=== PATIENT | female | born 1945 | race Caucasian/White ===

== ENCOUNTER 2019-09-07 10:20 | Emergency (ER) | payer MEDICARE, OTHER ==
[~2019-09-07] VITALS: Ht 165.1 cm; Wt 74.8 kg
[2019-09-07] MEDS ORDERED: APIX5TAB (10:37)
[2019-09-07] MEDS ORDERED: FURO20TA4 (10:37)
[2019-09-07] MEDS ORDERED: METO100T12 (10:37)
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
--- NOTE | 2019-09-07 11:30 | Diagnostic Imaging Report ---
PROCEDURE: CT head without contrast. TECHNIQUE: Multiple contiguous axial images were obtained through the brain without the use of intravenous contrast. Auto Exposure Controls were utilized during the CT exam to meet ALARA standards for radiation dose reduction. INDICATION: Headaches. Patient on blood thinners. COMPARISON: None. FINDINGS: BRAIN: No parenchymal hemorrhage, midline shift, or mass effect. The vides/white matter differentiation is adequately preserved without evidence of acute territorial infarct. Mild periventricular and subcortical low-density white matter changes are nonspecific, most commonly representing small vessel ischemic change. Mild prominence of the ventricles and sulci is consistent with cortical and cerebellar parenchymal volume loss, commensurate with age. EXTRA-AXIAL SPACES: No subdural or epidural collections. ORBITS AND PARANASAL SINUSES: The visualized orbits and globes are intact. The visualized paranasal sinuses and mastoid air cells are clear. CALVARIUM AND SOFT TISSUES: The calvarium is intact. No fractures or suspicious bony lesions. The extracranial soft tissues are unremarkable. IMPRESSION: No acute intracranial pathology. Chronic changes are detailed above. Dictated by: Dictated on workstation # [id number]
[2019-09-07 11:38] VITALS: BP 137/80
== END 2019-09-07 11:38 | disposition home or self-care (01) ==
LOC: EDUNIT# 10:20 → ER 10:21
DX: R51 Headache (principal); Z79.01 Long term (current) use of anticoagulants
CPT/HCPCS: 70450

== ENCOUNTER 2019-09-13 12:13 | Emergency (ER) | payer MEDICARE, OTHER ==
[~2019-09-13] VITALS: Ht 165.1 cm; Wt 77.2 kg
[~2019-09-13 12:13] MED LIST: APIX5TAB; FURO20TA4; METO100T12
--- OUTSIDE RECORDS SUMMARY | 2019-09-13 12:17 | XMS REPORT | Continuity of Care Document ---
Author Organization Unknown Address Unknown Phone Unavailable Allergies Active Description Code Type Severity Reaction Onset Reported/Identified Relationship to Patient Clinical Status Yes No Known Drug Allergies [id number] Drug Allergy Unknown N/A 09/07/2019 Medications There is no data. Problems Date Dx Coded Attending Type Code Diagnosis Diagnosed By 09/09/2019 SHAQUILLE PARK APRN Ot R51 HEADACHE 09/09/2019 SHAQUILLE PARK APRN Ot Z79.01 SKILLED NURSING (CURRENT) USE OF ANTICOAGULANT Procedures There is no data. Results There is no data. Encounters ACCT No. Visit Date/Time Discharge Status Pt. Type Provider Facility Loc./Unit Complaint [id number] 09/07/2019 10:21:00 020 11:38:00 DIS Outpatient SHAQUILLE PARK APRN [facility] ER HEADACHE
--- NOTE | 2019-09-13 12:28 | ED General ---
General Stated Complaint: SHAKINESS, POSS REACTION TO ZOLOFT Source of Information: Patient History of Present Illness Date Seen by Provider: September 13, 2019 Time Seen by Provider: 12:23 Initial Comments 74-year-old female presents with shakiness. Patient reports that she started Zoloft a couple days ago. She feels like it happened after she takes Zoloft. Patient does not have any other symptoms. Patient does admit to being under a lot of stress but does not think that this shakiness is from the stress. Patient denies any nausea vomiting vision changes shortness of breath or any other systemic complaints. Allergies and Home Medications Allergies Coded Allergies: No Known Drug Allergies (Unverified , 09/07/19) Patient Home Medication List Home Medication List Reviewed: Yes Review of Systems Review of Systems Constitutional: see HPI; No chills, No fever EENTM: no symptoms reported Respiratory: no symptoms reported Cardiovascular: no symptoms reported Gastrointestinal: no symptoms reported Genitourinary: no symptoms reported Skin: no symptoms reported Psychiatric/Neurological: See HPI, Anxiety Past Wbvobvr-Qwazkb-Bwqdql Hx Past Med/Social Hx: Reviewed Nursing Past Med/Soc Hx Patient Social History Recent Foreign Travel: No Contact w/Someone Who Travel: No Recent Hopitalizations: No Immunizations Up To Date Tetanus Booster (TDap): Unknown Seasonal Allergies Seasonal Allergies: Yes Past Medical History Surgeries: Yes Appendectomy, Tonsillectomy Respiratory: No Cardiac: Yes Neurological: No Genitourinary: No Gastrointestinal: No Musculoskeletal: No Endocrine: No HEENT: No Cancer: No Psychosocial: No Integumentary: No Blood Disorders: No Physical Exam Vital Signs Vital Signs - First Documented 09/13/19 12:15 Temp 37.0 Pulse 103 Resp 18 B/P (MAP) 194/103 (133) O2 Delivery Room Air Capillary Refill : Height, Weight, BMI Height: '" Weight: lbs. oz. kg; 27.00 BMI Method: General Appearance: No Apparent Distress, Other (mild tremors) HEENT: PERRL/EOMI Neck: Full Range of Motion, Non Tender Respiratory: Chest Non Tender, Lungs Clear Cardiovascular: Regular Rate, Rhythm, No Edema Gastrointestinal: Non Tender, Soft Back: Normal Inspection Extremity: Normal Capillary Refill Neurologic/Psychiatric: Alert, Oriented x3, Other (mild tremors, questionable mild dystonic reaction) Progress/Results/Core Measures Suspected Sepsis SIRS Temperature: Pulse: Respiratory Rate: Blood Pressure / Mean: Results/Orders My Orders Orders - STEFFANY LOCKWOOD DO Diphenhydramine Injection (Benadryl Inje (09/13/19 12:30) Medications Given in ED Current Medications Medications Dose Ordered Sig/Crsitian Route Start Time Stop Time Status Last Admin Dose Admin Diphenhydramine HCl 50 mg ONCE ONCE IM 09/13/19 12:30 09/13/19 12:32 DC 09/13/19 12:38 50 MG Vital Signs/I&O 09/13/19 12:15 Temp 37.0 Pulse 103 Resp 18 B/P (MAP) 194/103 (133) O2 Delivery Room Air Capillary Refill : Progress Note : Time: 13:06 Progress Note Patient doing signally better following that medication. Discussed with patient that she should follow-up with her primary care provider to determine she wants to continue her Zoloft. Patient will be discharged home in stable condition. Departure Impression Primary Impression: Medication reaction Qualified Codes: T50.905A - Adverse effect of unspecified drugs, medicaments and biological substances, initial encounter Disposition: 01 HOME, SELF-CARE Condition: Stable Departure-Patient Inst. Referrals: NO,LOCAL PHYSICIAN (PCP/Family) Primary Care Physician Patient Instructions: Adverse Drug Reactions, Adult (DC), Dystonia Add. Discharge Instructions: Follow-up with your primary care provider determine if you want to continue her Zoloft switch to another medication. If symptoms return you can try a Benadryl 25 mg [id number]. STEFFANY LOCKWOOD DO September 13, 2019 12:28
[2019-09-13] MEDS ORDERED: diphenhydrAMINE 50 MG/ML INJ (BENADRYL) IM ONE (12:30)
[2019-09-13 13:09] VITALS: BP 179/96
== END 2019-09-13 13:13 | disposition home or self-care (01) ==
LOC: EDUNIT# 12:13 → ER 12:14
DX: R25.1 Tremor, unspecified (principal); T43.225A Adverse effect of selective serotonin reuptake inhibitors, initial encounter
CPT/HCPCS: 99284

== ENCOUNTER 2020-05-12 13:43 | Emergency (ER) | payer MEDICARE, OTHER ==
[~2020-05-12] VITALS: Ht 162.5 cm; Wt 86.9 kg
--- NOTE | 2020-05-12 14:38 | ED EENT ---
History of Present Illness General Chief Complaint: Nasal Problems Stated Complaint: BAD NOSE BLEED, LUMP ON NECK Nursing Triage Note: AMB TO ROOM REPORTS THAT BETWEEN 8A AND 9A BENT OVER TO FEED HER CATS AND ONSET OF NOSEBLEED FROM R NARE. IT STOPPED NO BLEEDNG ON ADMIT. PATIENT GIVES POOR PMH Source: patient Exam Limitations: no limitations History of Present Illness Date Seen by Provider: May 12, 2020 Time Seen by Provider: 14:01 Initial Comments Patient presents ER by private conveyance by family with chief complaint she bent over this morning while feeding her cats and developed a bloody nose. It has since stopped but she is never had bloody noses before. She is having no pain or trauma. She denies falling or syncope. She denies knowing what her medications are but records indicate she did use Eliquis at one point the least as recent as January 2020. Patient is a poor historian. She says she used to follow with a doctor in [place], [place] but recently moved here and has not established care with a doctor yet. She does not know the names of her medicines. She did not use any nasal medications recently. She denies putting anything in her nose. Allergies and Home Medications Allergies Coded Allergies: No Known Drug Allergies (Unverified , 09/07/19) Patient Home Medication List Home Medication List Reviewed: Yes Review of Systems Review of Systems Constitutional: No chills, No diaphoresis Eyes: Denies Blindness, Denies Drainage Ears: Denies Dizziness, Denies Pain Nose: see HPI; denies clots; epistaxis Mouth: denies clots, denies clear discharge Throat: denies pain, denies swelling Respiratory: No cough, No phlegm Cardiovascular: No chest pain, No edema All Other Systems Reviewed Negative Unless Noted: Yes Past Huahrxc-Wzlcsq-Wxolha Hx Patient Social History Alcohol Use: Denies Use Recreational Drug Use: No Smoking Status: Never a Smoker Recent Foreign Travel: No Contact w/Someone Who Travel: No Recent Infectious Disease Expo: No Recent Hopitalizations: No Immunizations Up To Date Tetanus Booster (TDap): Unknown Seasonal Allergies Seasonal Allergies: Yes Past Medical History Surgeries: Yes Appendectomy, Tonsillectomy Respiratory: No Cardiac: Yes Neurological: No Genitourinary: No Gastrointestinal: No Musculoskeletal: No Endocrine: No HEENT: No Cancer: No Psychosocial: No Integumentary: No Blood Disorders: No Physical Exam Vital Signs Vital Signs - First Documented 05/12/20 14:23 Temp 36.4 Pulse 95 Resp 18 B/P (MAP) 202/126 (151) Pulse Ox 97 O2 Delivery Room Air Height, Weight, BMI Height: '" Weight: lbs. oz. kg; 32.00 BMI Method: General Appearance: WD/WN, no apparent distress Eyes: bilateral eye normal inspection, bilateral eye PERRL, bilateral eye EOMI Ears: bilateral ear auricle normal, bilateral ear canal normal, bilateral ear TM normal Nose: No active bleeding, No discharge; dried blood (Small clot anterior left nare hemostatic) Mouth/Throat: No pharynx normal (Mucosa mildly dry but without exudate tenderness swelling erythema or injection) Neck: non-tender, full range of motion, supple, normal inspection Cardiovascular: normal peripheral pulses, regular rate, rhythm Respiratory: lungs clear, normal breath sounds, no respiratory distress, no accessory muscle use Gastrointestinal: normal bowel sounds, non tender, soft Neurologic/Psychiatric: alert, normal mood/affect, oriented x 3 Skin: normal color, warm/dry Progress/Results/Core Measures Results/Orders My Orders Orders - DIDI CISNEROS Oxymetazoline 0.05% Nasal [place] (Afrin 0. (05/12/20 21:00) Vital Signs/I&O 05/12/20 05/12/20 14:23 14:31 Temp 36.4 Pulse 95 75 Resp 18 18 B/P (MAP) 202/126 (151) 185/92 (123) Pulse Ox 97 O2 Delivery Room Air Room Air Blood Pressure Mean: 123 Progress Progress Note #1: Time: 14:39 Progress Note She is hemostatic at this time. Her blood pressure is significantly elevated so we left her on the cuff to watch her for about 2030 minutes and he came down from 200/100 down to 185/92. We are going to refer her to some local primary care providers to get her blood pressure under better control. Provided her with oxymetazoline and conservative counseling as well as return precautions. Progress Note #2: Time: 14:46 Progress Note Discuss the case with Vega de paz her grandson who helped her recently moved here from [place] and he has considered getting her set up with Dr. Cano. We discussed that she would need her blood pressure addressed and he says he would bring that up. We also discussed management of her symptoms and return precautions. Departure Impression Primary Impression: Epistaxis Additional Impression: Hypertension Qualified Codes: I10 - Essential (primary) hypertension Disposition: 01 HOME, SELF-CARE Condition: Stable Departure-Patient Inst. Decision time for Depature: 14:41 Referrals: NO,LOCAL PHYSICIAN (PCP/Family) Primary Care Physician Patient Instructions: LOCAL PHYSICIAN LIST, Nosebleeds (DC) Add. Discharge Instructions: Drink plenty of fluids. Use humidifiers. Nasal saline sprays as often as necessary to keep your nose moist. If you have another nosebleed then you should apply 1 to 2 puffs of the oxymetazoline up each nostril and then clamp your nose. Do not take pressure off your nose for at least 20 minutes while sitting up. Spit out any blood do not swallow it as it may cause nausea. If after 20 to 40 minutes you cannot get the nose bleeding to stop you may return to the ER. Plan to establish care with a local primary care provider as you do need your blood pressure addressed. All discharge instructions reviewed with patient and/or family. Voiced understanding. DIDI CISNEROS May 12, 2020 14:37
[2020-05-12 14:54] VITALS: BP 175/92
[2020-05-12] MEDS ORDERED: OXYMETAZOLINE (AFRIN) 0.05% NA 30 ML BTL STA (14:56)
[2020-05-12] MEDS ORDERED: OXYMETAZOLINE (AFRIN) 0.05% NA 30 ML BTL SCH (21:00)
== END 2020-05-12 14:52 | disposition home or self-care (01) ==
LOC: EDUNIT# 13:43 → ER 13:46
DX: R04.0 Epistaxis (principal); I10 Essential (primary) hypertension
CPT/HCPCS: 99283

== ENCOUNTER 2020-11-10 15:16 | Emergency (ER) | payer MEDICARE, OTHER ==
[~2020-11-10] VITALS: Ht 165 cm; Wt 73.0 kg
--- NOTE | 2020-11-10 15:49 | ED Neurological Problem ---
General Chief Complaint: Altered Mental Status Stated Complaint: CONFUSION Source: patient, family Exam Limitations: physical impairment (Mild confusion) History of Present Illness Date Seen by Provider: Nov 10, 2020 Time Seen by Provider: 15:31 Initial Comments Here with family who reports the patient had apparently gone to the police station today to try to get a tag but was quite confused. They ultimately called the daughter who brought her here. The daughter did live with the patient until last year when the daughter had noted confusion and mentioned it to her mother. The patient was distraught about that and kicked daughter out of the house at that time. They have not had much relationship since then. Patient may have history of hypertension but she states that she really does not have any medical problems. Patient admits that she does jumbled her words sometimes. She is answering questions although seems somewhat confused and is confused to date and time but does know place. She was calling her daughter her supervisor litharge. Denies chest pain, breathing problems, nausea, vomiting or diarrhea. States that she is eating and drinking okay. As nobody lives with her, last known well time is unavailable/unknown. Patient denies medication but history of prescriptions does show patient to be on amlodipine, clonidine, Eliquis and metoprolol Timing/Duration: unknown Severity: mild, moderate Associated Symptoms: confusion; No vision changes Allergies and Home Medications Allergies Coded Allergies: No Known Drug Allergies (Unverified , 09/07/19) Patient Home Medication List Home Medication List Reviewed: Yes Review of Systems Review of Systems Constitutional: No chills, No fever Ears, Nose, Mouth, Throat: denies nose discharge, denies throat pain Respiratory: No cough, No short of breath Cardiovascular: No chest pain, No edema Gastrointestinal: No abdominal pain, No nausea, No vomiting Genitourinary: No dysuria, No frequency Musculoskeletal: No back pain, No muscle pain Skin: no symptoms reported Psychiatric/Neurological: See HPI All Other Systems Reviewed Negative Unless Noted: Yes Past Qgdxxnb-Aylfoa-Gigool Hx Patient Social History Tobacco Use?: No Substance use?: No Alcohol Use?: No Immunizations Up To Date Tetanus Booster (TDap): Unknown Seasonal Allergies Seasonal Allergies: Yes Past Medical History Surgeries: Yes Appendectomy, Tonsillectomy Respiratory: No Cardiac: Yes Hypertension Neurological: No Genitourinary: No Gastrointestinal: No Musculoskeletal: No Endocrine: No HEENT: No Cancer: No Psychosocial: No Integumentary: No Blood Disorders: No Family Medical History Reviewed Nursing Family Hx Physical Exam Vital Signs Vital Signs - First Documented 11/10/20 15:52 Temp 36.3 Pulse 61 Resp 18 B/P (MAP) 186/89 (121) Pulse Ox 96 Capillary Refill : Height, Weight, BMI Height: '" Weight: lbs. oz. kg; 32.00 BMI Method: General Appearance: WD/WN, no apparent distress HEENT: PERRL/EOMI, TMs normal, pharynx normal Neck: non-tender, full range of motion, supple, normal inspection Respiratory: lungs clear, normal breath sounds Cardiovascular: regular rate, rhythm, no murmur Peripheral Pulses: 2+ Dorsalis Pedis (R), 2+ Left Dors-Pedis (L), 2+ Radial Pulses (R), 2+ Radial Pulses (L) Gastrointestinal: non tender, soft Back: normal inspection, no CVA tenderness, no vertebral tenderness Extremities: normal range of motion, non-tender Neurologic/Psychiatric: alert, other (Confused with some answers and details as well as to time.) Crainal Nerves: normal hearing, normal speech, PERRL Coordination/Gait: normal finger to nose Motor/Sensory: no motor deficit, no sensory deficit, no pronator drift Skin: normal color, warm/dry Progress/Results/Core Measures Results/Orders Lab Results Laboratory Tests Test 11/10/20 15:50 11/10/20 16:00 11/10/20 16:17 Range/Units White Blood Count 7.0 4.3-11.0 10^3/uL Red Blood Count 4.57 3.80-5.11 10^6/uL Hemoglobin 14.5 11.5-16.0 g/dL Hematocrit 43 35-52 % Mean Corpuscular Volume 95 80-99 fL Mean Corpuscular Hemoglobin 32 25-34 pg Mean Corpuscular Hemoglobin Concent 34 32-36 g/dL Red Cell Distribution Width 13.6 10.0-14.5 % Platelet Count 238 130-400 10^3/uL Mean Platelet Volume 9.9 9.0-12.2 fL Immature Granulocyte % (Auto) 0 % Neutrophils (%) (Auto) 58 42-75 % Lymphocytes (%) (Auto) 32 12-44 % Monocytes (%) (Auto) 8 0-12 % Eosinophils (%) (Auto) 0 0-10 % Basophils (%) (Auto) 0 0-10 % Neutrophils # (Auto) 4.1 1.8-7.8 10^3/uL Lymphocytes # (Auto) 2.3 1.0-4.0 10^3/uL Monocytes # (Auto) 0.6 0.0-1.0 10^3/uL Eosinophils # (Auto) 0.0 0.0-0.3 10^3/uL Basophils # (Auto) 0.0 0.0-0.1 10^3/uL Immature Granulocyte # (Auto) 0.0 0.0-0.1 10^3/uL Prothrombin Time 16.5 H 12.2-14.7 SEC INR Comment 1.3 0.8-1.4 Activated Partial Thromboplast Time 32 24-35 SEC D-Dimer <= 0.27 0.00-0.49 UG/ML Sodium Level 141 135-145 MMOL/L Potassium Level 4.0 3.6-5.0 MMOL/L Chloride Level 107 98-107 MMOL/L Carbon Dioxide Level 24 21-32 MMOL/L Anion Gap 10 5-14 MMOL/L Blood Urea Nitrogen 6 L 7-18 MG/DL Creatinine 0.83 0.60-1.30 MG/DL Estimat Glomerular Filtration Rate > 60 BUN/Creatinine Ratio 7 Glucose Level 123 H 70-105 MG/DL Calcium Level 10.0 8.5-10.1 MG/DL Corrected Calcium 9.6 8.5-10.1 MG/DL Total Bilirubin 0.7 0.1-1.0 MG/DL Aspartate Amino Transf (AST/SGOT) 17 5-34 U/L Alanine Aminotransferase (ALT/SGPT) 14 0-55 U/L Alkaline Phosphatase 76 40-136 U/L Troponin I < 0.028 <0.028 NG/ML Total Protein 8.0 6.4-8.2 GM/DL Albumin 4.5 3.2-4.5 GM/DL Urine Color YELLOW Urine Clarity CLEAR Urine pH 6.0 5-9 Urine Specific Prosperity <=1.005 1.016-1.022 Urine Protein NEGATIVE NEGATIVE Urine Glucose (UA) NEGATIVE NEGATIVE Urine Ketones NEGATIVE NEGATIVE Urine Nitrite NEGATIVE NEGATIVE Urine Bilirubin NEGATIVE NEGATIVE Urine Urobilinogen 0.2 < = 1.0 MG/DL Urine Leukocyte Esterase TRACE H NEGATIVE Urine RBC (Auto) TRACE-I NEGATIVE Urine RBC 0-2 /HPF Urine WBC 0-2 /HPF Urine Crystals PRESENT H /LPF Urine Amorphous Sediment RARE ETTA URATES H /LPF Urine Bacteria NEGATIVE /HPF Urine Casts NONE /LPF Urine Mucus NEGATIVE /LPF Urine Culture Indicated NO Glucometer 120 H 70-110 MG/DL My Orders Orders - JOEL CALIX MD Cbc With Automated Diff (11/10/20 15:39) Protime With Inr (11/10/20 15:39) Partial Thromboplastin Time (11/10/20 15:39) Comprehensive Metabolic Panel (11/10/20 15:39) Fibrin Degradation Products (11/10/20 15:39) Troponin I (11/10/20 15:39) Ua Culture If Indicated (11/10/20 15:39) Chest 1 View, Ap/Pa Only (11/10/20 15:39) Ekg Tracing (11/10/20 15:39) Nothing By Mouth (11/10/20 Dinner) Accucheck Stat ONCE (11/10/20 15:39) Ed Iv/Invasive Line Start (11/10/20 15:39) Vital Signs Stroke Patient Q15M (11/10/20 15:39) Ct Head Wo-R/O Stroke (11/10/20 15:39) O2 (11/10/20 15:39) Intake & Output 06,14,22 (11/10/20 15:39) Monitor-Rhythm Ecg Trace Only (11/10/20 15:39) Dysphagia Screening Tool (11/10/20 15:39) Lipid Panel (11/11/20 06:00) Ns Iv 500 Ml (Sodium Chloride 0.9%) (11/10/20 16:00) Medications Given in ED Current Medications Medications Dose Ordered Sig/Cristian Route Start Time Stop Time Status Last Admin Dose Admin Sodium Chloride 500 ml @ 0 mls/hr Q0M ONCE IV 11/10/20 16:00 11/10/20 16:01 DC 11/10/20 16:07 500 MLS/HR Vital Signs/I&O 11/10/20 15:52 Temp 36.3 Pulse 61 Resp 18 B/P (MAP) 186/89 (121) Pulse Ox 96 Progress Progress Note : Progress Note Seen and evaluated on arrival. Stroke protocol initiated. Patient is 1 on the stroke scale for orientation question. She does know her birthday and self and daughter after reframing. We will initiate go to serially 500 mL bolus as well. Patient does not meet criteria for thrombolytic due to last known well time unknown and history of Eliquis use. Monitor patient. 1750: I did have long discussion with both the daughter and the grandson regarding patient's current situation and their concerns. Ultimately we had decided to see if she would be a candidate for [facility] psych unit which I think would be of great benefit for the patient. We did call over and they are currently on diversion. I did discuss the case with Dr. Mcginnis who is on-call for that service. She is willing to accept the patient in observation at [facility] due to the depression and altered mental status/confusion as well as hypertension there and that see if she can get [facility] psychiatric consult. This would be an exceptional opportunity and this was discussed with the family who was greatly appreciative and will excepted that offer. Patient is also greatly appreciative and accepts transfer. Patient is stable for transfer via POV and family will take her directly there. All labs and radiology findings were reviewed with Dr. Mcginnis. Copy of chart to go with the patient to [facility]. We are awaiting bed number and report. Initial ECG Impression Date: Nov 10, 2020 Initial ECG Impression Time: 15:48 Initial ECG Rate: 49 Initial ECG Rhythm: S.Craig Comment Sinus bradycardia with left ventricular hypertrophy. Left axis deviation. No evidence of ST elevation [place]. No previous available for comparison. Interpreted by me. Diagnostic Imaging Comments [facility] [place], [place] NAME: DESTINI REYNOLDS [facility] REC#: [id number] PT STATUS: REG ER : 1945 PHYSICIAN: JOEL CALIX MD ADMIT DATE: 11/10/20/ER Signed Date of Exam:11/10/20 CT HEAD WO-R/O STROKE CLINICAL INDICATION: Patient with neuro deficit and confusion. EXAM: Axial CT scan of the brain without IV contrast with coronal and sagittal reformatted images. Auto Exposure Controls were utilized during the CT exam to meet ALARA standards for radiation dose reduction. COMPARISON: Head CT without contrast dated 09/07/2019. FINDINGS: There is no evidence of acute cerebral infarct, intracranial hemorrhage, or gross mass effect. There is diffuse brain parenchymal volume loss. There are subtle patchy areas of low-attenuation white matter changes involving both cerebral hemispheres, likely representing chronic small vessel ischemic disease. There is normal vides-white matter distinction. There is no significant midline shift or herniation. There is no evidence of hydrocephalus. The basal cisterns are unremarkable. The skull, extracranial soft tissue, and orbits are unremarkable. There is mild mucosal thickening involving the ethmoid sinus. Temporal bones show no significant abnormality. IMPRESSION: 1: There is no evidence of acute intracranial process. There is no dense vessel sign seen. 2: There is diffuse brain parenchymal volume loss and chronic small vessel ischemic disease. Results of this report were discussed with Dr. Joel Calix via the telephone on 11/10/2020 at 1622 hours. Dictated by: Dictated on workstation # [id number] Dict: 11/10/201616 Trans: 11/10/201705 [id number] Interpreted by: DAVINA ALEXIS MD Electronically signed by: DAVINA ALEXIS MD 11/10/201705 Diagonstic Imaging: Xray Plain Films/CT/US/NM/MRI: chest Comments [facility], [place] NAME: DESTINI REYNOLDS [facility] REC#: [id number] PT STATUS: REG ER : 1945 PHYSICIAN: JOEL CALIX MD ADMIT DATE: 11/10/20/ER Signed Date of Exam:11/10/20 CHEST 1 VIEW, AP/PA ONLY INDICATION: Stroke, confusion Frontal chest obtained at 4:08 p.m. There is no prior study for comparison. Heart and mediastinal silhouette are normal in appearance. The lungs appear clear. There is no pneumothorax or pleural fluid. IMPRESSION: Negative chest. Dictated by: Dictated on workstation # [id number] Dict: 11/10/201615 Trans: 11/10/20 170 CVB [id number] Interpreted by: KATTY KRUEGER MD Electronically signed by: KATTY KRUEGER MD 11/10/20 1701 Departure Impression Primary Impression: Hypertension Qualified Codes: I10 - Essential (primary) hypertension Additional Impressions: Depression Qualified Codes: F32.9 - Major depressive disorder, single episode, unspecified Confusion Disposition: ADMITTED INPATIENT Condition: Stable Transfer Transfer Reason: Exceeds level of care Time Spoke to Accepting Phy: 17:45 Transfer Progress Notes [facility], [facility], Dr. Mcginnis accepting Transfer Time: 18:00 Method of Transfer: Private Vehicle Departure-Patient Inst. Referrals: NO,LOCAL PHYSICIAN (PCP/Family) Primary Care Physician JOEL CALIX MD Nov 10, 2020 15:49
[2020-11-10 15:58] LABS: BASOPHILS % (AUTO) 0 % (0-10); EOSINOPHILS % (AUTO) 0 % (0-10); HEMATOCRIT 43 % (35-52); HEMOGLOBIN 14.5 g/dL (11.5-16.0); LYMPHOCYTES # (AUTO) 2.3 10^3/uL (1.0-4.0); LYMPHOCYTES % (AUTO) 32 % (12-44); MEAN CORPUSCULAR HEMOGLOBIN 32 pg (25-34); MEAN CORPUSCULAR HGB CONC 34 g/dL (32-36); MEAN CORPUSCULAR VOLUME 95 fL (80-99); MEAN PLATELET VOLUME 9.9 fL (9.0-12.2); MONOCYTES # (AUTO) 0.6 10^3/uL (0.0-1.0); MONOCYTES % (AUTO) 8 % (0-12); NEUTROPHILS # (AUTO) 4.1 10^3/uL (1.8-7.8); NEUTROPHILS % (AUTO) 58 % (42-75); PLATELET COUNT 238 10^3/uL (130-400)
[2020-11-10] MEDS ORDERED: NS IV 500 ML 500 ML IV ONE (16:00)
[2020-11-10 16:05] LABS: BILIRUBIN,URINE NEGATIVE (NEGATIVE); CLARITY,URINE CLEAR; COLOR,URINE YELLOW; GLUCOSE, URINE (UA) NEGATIVE (NEGATIVE); KETONES,URINE NEGATIVE (NEGATIVE); LEUKOCYTE ESTERASE ,URINE TRACE (NEGATIVE); NITRITE,URINE NEGATIVE (NEGATIVE); PROTEIN,URINE NEGATIVE (NEGATIVE)
[2020-11-10 16:10] LABS: ALBUMIN 4.5 GM/DL (3.2-4.5)
[2020-11-10 16:11] LABS: CHLORIDE 107 MMOL/L (98-107); SODIUM 141 MMOL/L (135-145)
[2020-11-10 16:13] LABS: GLUCOSE 123 MG/DL (70-105)
[2020-11-10 16:14] LABS: CARBON DIOXIDE 24 MMOL/L (21-32)
[2020-11-10 16:15] LABS: BILIRUBIN,TOTAL 0.7 MG/DL (0.1-1.0)
[2020-11-10 16:17] LABS: ALKALINE PHOSPHATASE 76 U/L (40-136); CREATININE SERUM 0.83 MG/DL (0.60-1.30); GFR ESTIMATED > 60
[2020-11-10 16:18] LABS: BUN/CREATININE RATIO 7
[2020-11-10 16:19] LABS: BACTERIA,URINE NEGATIVE /HPF; RBC,URINE 0-2 /HPF; WBC,URINE 0-2 /HPF
--- NOTE | 2020-11-10 16:19 | Diagnostic Imaging Report ---
INDICATION: Stroke, confusion Frontal chest obtained at 4:08 p.m. There is no prior study for comparison. Heart and mediastinal silhouette are normal in appearance. The lungs appear clear. There is no pneumothorax or pleural fluid. IMPRESSION: Negative chest. Dictated by: Dictated on workstation # [id number]
[2020-11-10 16:20] LABS: ALANINE AMINOTRANSFERASE 14 U/L (0-55)
[2020-11-10 16:20] LABS: AMORPHOUS SEDIMENT,UR RARE AMOR URATES /LPF
[2020-11-10 16:23] LABS: FIBRIN DEGRADATION PRODUCTS <= 0.27 UG/ML (0.00-0.49); INR 1.3 (0.8-1.4); PARTIAL THROMBOPLASTIN TIME 32 SEC (24-35); PROTHROMBIN TIME PATIENT 16.5 SEC (12.2-14.7)
--- NOTE | 2020-11-10 16:27 | Diagnostic Imaging Report ---
CLINICAL INDICATION: Patient with neuro deficit and confusion. EXAM: Axial CT scan of the brain without IV contrast with coronal and sagittal reformatted images. Auto Exposure Controls were utilized during the CT exam to meet ALARA standards for radiation dose reduction. COMPARISON: Head CT without contrast dated 09/07/2019. FINDINGS: There is no evidence of acute cerebral infarct, intracranial hemorrhage, or gross mass effect. There is diffuse brain parenchymal volume loss. There are subtle patchy areas of low-attenuation white matter changes involving both cerebral hemispheres, likely representing chronic small vessel ischemic disease. There is normal vides-white matter distinction. There is no significant midline shift or herniation. There is no evidence of hydrocephalus. The basal cisterns are unremarkable. The skull, extracranial soft tissue, and orbits are unremarkable. There is mild mucosal thickening involving the ethmoid sinus. Temporal bones show no significant abnormality. IMPRESSION: 1: There is no evidence of acute intracranial process. There is no dense vessel sign seen. 2: There is diffuse brain parenchymal volume loss and chronic small vessel ischemic disease. Results of this report were discussed with Dr. Joel Jordan via the telephone on 11/10/2020 at 1622 hours. Dictated by: Dictated on workstation # [id number]
[2020-11-10 18:22] VITALS: BP 130/98
== END 2020-11-10 18:27 | disposition short-term general hospital (02) ==
LOC: EDUNIT# 15:16 → ER 15:19
DX: I10 Essential (primary) hypertension (principal); F32.9 Major depressive disorder, single episode, unspecified; R41.0 Disorientation, unspecified
CPT/HCPCS: 36415; 70450; 71045; 80053; 81000; 82947; 84484; 85025; 85379; 85610; 85730; 93005; 93041